=== PATIENT | male | born 1970 | race African-American/Black ===

== ENCOUNTER 2016-08-20 18:05 | Emergency (ER) | payer MEDICAID ==
[~2016-08-20] VITALS: Ht 172.7 cm; Wt 69.0 kg
[2016-08-21 02:23] VITALS: BP 111/68
== END 2016-08-21 02:26 | disposition home or self-care (01) ==
LOC: ER 18:05
DX: L02.31 Cutaneous abscess of buttock (principal); F17.200 Nicotine dependence, unspecified, uncomplicated
CPT/HCPCS: 99283; Z7610